=== PATIENT | female | born 1990 | race Caucasian/White ===

== ENCOUNTER 2021-03-20 12:28 | Emergency (ER) | payer OTHER, SELFPAY ==
[2021-03-20 12:40] VITALS: BP 142/85; PULSE 79; RESP 18; TEMP 36.8; O2SAT 100
--- NOTE | 2021-03-20 12:46 | ED.URI ---
HPI - URI/Sore Throat General Chief Complaint: Upper Respiratory Infection Stated Complaint: Headache,Congestion,Sinus Time Seen by Provider: 03/20/21 12:47 Source: patient, RN notes reviewed and old records reviewed Mode of arrival: ambulatory Limitations: no limitations History of Present Illness HPI Narrative: 30-year-old female who presents to [facility] with complaints of sinus congestion and drainage with sinus pressure since Monday and ears feel plugged. Patient states that she has had COVID immunizations and was planning on having Booster done today but due to symptoms she rescheduled, patient has not had flu shot. Patient states that she did have Covid in December of 2020. Patient has been taking Dayquil and Nyquil for her symptoms without resolution. Patient denies any cough, sore throat or any known fevers, chills, or sweats, MD elicited complaint: rhinorrhea and nasal congestion Related Data Home Medications Medication Instructions Recorded Confirmed losartan 50 mg PO DAILY 03/20/21 03/20/21 norethindrone (contraceptive) 0.35 mg PO DAILY 03/20/21 03/20/21 [Miladis-BE] Allergies Allergy/AdvReac Type Severity Reaction Status Date / Time lisinopril AdvReac Mild Headache Verified 03/20/21 12:50 Review of Systems Review of Systems: CONSTITUTIONAL: Denies fever, chills, or sweats. EYES: Denies visual changes, redness, or discharge. ENT: positive rhinorrhea, congestion,no sore throat, or otalgia. CARDIOVASCULAR: Denies chest pain, palpitations, or edema. RESPIRATORY: Denies cough or dyspnea. GASTROINTESTINAL: Denies abdominal pain, nausea, vomiting, or diarrhea. GENITOURINARY: Denies dysuria or hematuria. SKIN: Denies rash or itching. MUSCULOSKELETAL: Denies back pain, joint pain, or myalgia. NEUROLOGIC: Positive for headache, no numbness, or weakness. PSYCHIATRIC: Denies anxiety or depression. All systems reviewed & are unremarkable except as noted in HPI and below PMFSH Past Medical History Medical History (Updated 03/20/21 @ 13:09 by Sarah Lemus NP) Hypertension Surgical History Surgical History (Updated 03/20/21 @ 13:01 by Sarah Lemus NP) Previous section Family History Family History (Updated 03/20/21 @ 13:00 by Sarah Lemus NP) Mother Breast cancer Grandparent Heart disease Father Cancer of kidney Hypertension Social History Social History (Updated 03/20/21 @ 13:01 by Sarah Lemus NP) Smoking status: Never smoker Alcohol intake: current Alcohol use details: social Substance use: never Living arrangements: with family Gender identity (if verbalized by the patient): Female Comments At time of signature, agree with nursing past medical, surgical, social and family history. There is no relevant family history pertinent to the presenting complaint Exam Narrative: GENERAL: Well-appearing, well-nourished, and in no acute distress. HEAD: Normocephalic, atraumatic. EYES: PERRLA and EOMI. ENT: Nares red swollen with thick yellow rhinorrhea no epistaxis.Frontal headache and facial sinus pressure. Mucous membranes moist.TM's normal with dull light reflex, throat mild pink with no lesions exudates or swollen tonsils noted patient has post nasal drainage to back of throat noted. NECK: Supple. no lymphadenopathy CHEST: Clear to auscultation. No respiratory distress.no acute cough or any dyspnea noted SAO2 100% on room air HEART: Regular rate and rhythm. No murmur heard. Normal peripheral pulses. ABDOMEN: Soft, nontender, nondistended, normal active bowel sounds. EXTREMITIES: Normal range of motion. No edema. SKIN: Warm, dry, no rash. NEURO: No focal deficits. Alert and oriented x3. Course Course Level of Care: Express Care Visit Vital Signs Vital signs: Vital Signs Temperature 36.8 C 03/20/21 12:40 Pulse Rate 79 03/20/21 12:40 Respiratory Rate 18 03/20/21 12:40 Blood Pressure 142/85 H 03/20/21 12:40 Pulse Oximetry 100
== END 2021-03-20 13:13 | disposition home or self-care (01) ==
PROVIDERS: Emergency Provider Registered Nurse
DX: J32.9 Chronic sinusitis, unspecified (principal); I10 Essential (primary) hypertension; Z86.16 Personal history of COVID-19
CPT/HCPCS: 99203; G0463

== ENCOUNTER 2021-06-21 10:25 | Emergency (ER) | payer OTHER, SELFPAY ==
[2021-06-21 10:55] VITALS: BP 130/82; PULSE 93; RESP 16; TEMP 36.5; O2SAT 100
--- NOTE | 2021-06-21 11:19 | ED.URI ---
HPI - URI/Sore Throat General Chief Complaint: Upper Respiratory Infection Stated Complaint: Cough,Sore Throat Time Seen by Provider: 06/21/21 11:19 Source: patient Mode of arrival: ambulatory Limitations: no limitations History of Present Illness HPI Narrative: 31-year-old female presents with complaint of cough, nasal congestion, sore throat, headache for 2 to 3 days. Reports coughing up clear sputum. Yesterday took Benadryl and Mucinex with little relief. Afebrile. Denies shortness of breath and chest pain. Reports history of bronchitis. Denies nausea vomiting diarrhea. All systems reviewed and negative except as noted above. Related Data Home Medications Medication Instructions Recorded Confirmed losartan 50 mg PO DAILY 03/20/21 06/21/21 norethindrone (contraceptive) 0.35 mg PO DAILY 03/20/21 06/21/21 [Miladis-BE] Allergies Allergy/AdvReac Type Severity Reaction Status Date / Time lisinopril AdvReac Mild Headache Verified 06/21/21 11:01 Review of Systems Review of Systems: CONSTITUTIONAL: Denies fever, chills, or sweats. EYES: Denies visual changes, redness, or discharge. ENT: Reports rhinorrhea, congestion, sore throat. Denies otalgia. CARDIOVASCULAR: Denies chest pain, palpitations, or edema. RESPIRATORY: Reports cough. Denies dyspnea. GASTROINTESTINAL: Denies abdominal pain, nausea, vomiting, or diarrhea. GENITOURINARY: Denies dysuria or hematuria. SKIN: Denies rash or itching. MUSCULOSKELETAL: Denies back pain, joint pain, or myalgia. NEUROLOGIC: Denies headache, numbness, or weakness. PSYCHIATRIC: Denies anxiety or depression. All other systems reviewed are negative, except as documented in HPI. [facility] Past Medical History Medical History (Updated 06/21/21 @ 11:27 by Sangeeta Clement NP) Hypertension Surgical History Surgical History (Updated 03/20/21 @ 13:01 by Sarah Lemus NP) Previous section Family History Family History (Updated 03/20/21 @ 13:00 by Sarah Lemus NP) Mother Breast cancer Grandparent Heart disease Father Cancer of kidney Hypertension Social History Social History (Updated 03/20/21 @ 13:01 by Sarah Lemus NP) Smoking status: Never smoker Alcohol intake: current Alcohol use details: social Substance use: never Gender identity (if verbalized by the patient): Female Comments At time of signature, agree with nursing past medical, surgical, social and family history. There is no relevant family history pertinent to the presenting complaint. Exam Narrative: GENERAL: This is a well-nourished, well-developed patient, in no apparent distress. HEAD: normocephalic, atraumatic. EYES: PERRL. Sclera clear/white. Vision is grossly intact. EARS: External ears normal, auditory canals clear and without drainage, TMs normal without perforation. Hearing grossly intact. NOSE: External nose normal with clear nasal drainage and mild erythema to nares. THROAT: Mucous membranes moist, posterior pharynx clear. NECK: Neck supple, non-tender without lymphadenopathy, masses or thyromegaly. CARDIOVASCULAR: Regular rate and rhythm without murmurs, gallops, or rubs. RESPIRATORY: Clear to auscultation. Breath sounds equal bilaterally. No wheezes, rales, or rhonchi. SKIN: warm, Dry, intact with no suspicious lesions or rash, good texture and turgor. NEURO: awake, alert, and oriented to person, place and time. There were no obvious focal neurologic abnormalities. EXTREMITIES: Normal range of motion to all extremities Course Course Level of Care: Express Care Visit Vital Signs Vital signs: Vital Signs Temperature 36.5 C 06/21/21 10:55 Pulse Rate 93 06/21/21 10:55 Respiratory Rate 16 06/21/21 10:55 Blood Pressure 130/82 06/21/21 10:55 Pulse Oximetry 100 06/21/21 10:55 Temperature 36.5 C 06/21/21 10:55 Pulse Rate 93 06/21/21 10:55 Respiratory Rate 16 06/21/21 10:55 Blood Pressure 130/82 06/21/21 10:5
== END 2021-06-21 11:35 | disposition home or self-care (01) ==
PROVIDERS: Emergency Provider Nurse Practitioner Family
DX: J06.9 Acute upper respiratory infection, unspecified (principal); I10 Essential (primary) hypertension
CPT/HCPCS: 87081; 87880; 99213; G0463

== ENCOUNTER 2021-12-09 11:57 | Emergency (ER) | payer OTHER, SELFPAY ==
--- NOTE | 2021-12-09 12:01 | ED.URI ---
HPI - URI/Sore Throat General Chief Complaint: Upper Respiratory Infection Stated Complaint: Congestion,Sore Throat,Sinus Time Seen by Provider: 12/09/21 12:37 Source: patient and RN notes reviewed Mode of arrival: ambulatory Limitations: no limitations History of Present Illness HPI Narrative: 31-year-old female presents with a concern for 5 day history of sore throat, sinus pressure, chest congestion and cough. Reports her ears were caught. She reports she has taken a couple [id number] medications without relief. Reports history of bronchitis. She denies fever, body aches, chills, sweats. MD elicited complaint: cough and nasal congestion Related Data Home Medications Medication Instructions Recorded Confirmed losartan 50 mg tablet 50 mg PO DAILY 03/20/21 12/09/21 Allergies Allergy/AdvReac Type Severity Reaction Status Date / Time lisinopril AdvReac Mild Headache Verified 12/09/21 12:21 Review of Systems Review of Systems: CONSTITUTIONAL: Reports malaise. denies chills, sweats, or fever. EYES: Denies visual changes, redness, or discharge. ENT: Reports rhinorrhea, congestion, sinus pain, otalgia and sore throat. CARDIOVASCULAR: Denies chest pain, palpitations, or edema. RESPIRATORY: Reports cough and chest congestion. Denies dyspnea. GASTROINTESTINAL: Denies abdominal pain, nausea, vomiting, diarrhea SKIN: Denies rash or itching. MUSCULOSKELETAL: Denies myalgia. NEUROLOGIC: Denies headache. All systems reviewed & are unremarkable except as noted in HPI and below PMFSH Past Medical History Medical History (Updated 12/09/21 @ 12:44 by Sahra Kim NP) Hypertension Surgical History Surgical History (Updated 03/20/21 @ 13:01 by Sarah Lemus NP) Previous section Family History Family History (Updated 03/20/21 @ 13:00 by Sarah Lemus NP) Mother Breast cancer Grandparent Heart disease Father Cancer of kidney Hypertension Social History Social History (Updated 03/20/21 @ 13:01 by Sarah Lemus NP) Smoking status: Never smoker Alcohol intake: current Alcohol use details: social Substance use: never Gender identity (if verbalized by the patient): Female Comments At time of signature, agree with nursing past medical, surgical, social and family history. There is no relevant family history pertinent to the presenting complaint Exam Narrative: GENERAL: Well-appearing, well-nourished, and in no acute distress. HEAD: Normocephalic EYES: PERRLA, conjunctivae clear ENT: Nares clear, turbinates edematous and erythematous, clear discharge. Mucous membranes moist. TM pearly mark with dull light reflex bilaterally; no tragal tenderness. Oropharynx not erythematous without lesions. Tonsils not enlarged and without exudate, no drooling, no hoarseness, no trismus, uvula midline. NECK: Supple. No lymphadenopathy CHEST: Clear to auscultation, breath sounds equal. No wheezing, rhonchi, rales, or stridor. No respiratory distress, speaks in full sentences. HEART: Regular rate and rhythm. No murmur heard. SKIN: Warm, dry, no rash. NEURO: Alert and oriented x3. PSYCH: Normal mood and affect Course Course Emergency Course: Patient is aware of diagnosis, understands and agrees to treatment plan. Anticipatory guidance given. Patient agrees to follow-up as directed and is aware of reasons to seek care at the emergency department. Portions of this record may have been created with voice recognition software Level of Care: Express Care Visit Vital Signs Vital signs: Reviewed. MDM - URI/Sore Throat MDM Narrative Medical decision making narrative: Differential diagnosis considered: Mascorro virus, strep pharyngitis, allergic rhinitis, upper respiratory tract infection, sinusitis, rhinosinusitis, nasopharyngitis. viral pharyngitis, otitis media, otitis externa, pneumonia, bronchitis, viral cough syndrome, viral syndrome, and influenza. Exam findings show no acute con
[2021-12-09 12:05] VITALS: BP 128/79; PULSE 97; RESP 18; TEMP 36.6; O2SAT 98
== END 2021-12-09 12:49 | disposition home or self-care (01) ==
PROVIDERS: Emergency Provider Nurse Practitioner
DX: J40 Bronchitis, not specified as acute or chronic (principal); I10 Essential (primary) hypertension
CPT/HCPCS: 99213; G0463

== ENCOUNTER 2024-01-29 10:32 | Emergency (ER) | payer OTHER, SELFPAY ==
[2024-01-29 10:45] VITALS: BP 136/98; PULSE 63; RESP 18; TEMP 36.6; O2SAT 98
--- NOTE | 2024-01-29 11:04 | ED.NECK ---
HPI - Neck Pain/Injury General Chief Complaint: Neck Pain/Injury Stated Complaint: head and Neck Pain Time Seen by Provider: 01/29/24 10:35 Source: patient Mode of arrival: ambulatory Limitations: no limitations History of Present Illness HPI Narrative: Patient is a 33-year-old female who presents with headache and right-sided neck pain since Monday. Patient states she was on up stairs felt a pop. Patient has Physical therapy for other side a neck and started doing exercises on injured side. Patient states there was relief of symptoms for short periods of time. Denies any numbness, tingling or weakness to extremities. Denies any changes in vision, dizziness, falling. Related Data Home Medications Medication Instructions Recorded Confirmed losartan 50 mg tablet 50 mg PO DAILY 03/20/21 01/29/24 Allergies Allergy/AdvReac Type Severity Reaction Status Date / Time lisinopril AdvReac Mild Headache Verified 01/29/24 11:00 Review of Systems Review of Systems: All systems reviewed & are unremarkable except as noted in HPI and below Constitutional: Constitutional: Denies body ache(s), Denies chills, Denies fatigue, Denies fever(s), Denies headache(s), Denies malaise and Denies weakness Eyes: Eyes: Denies blurry vision, Denies irritation and Denies loss of vision ENT: Denies otalgia, Denies headache(s), Denies nasal discharge, Denies sinus pain and Denies sore throat Cardiovascular: Cardiovascular: Denies chest pain, Denies irregular heart rhythm and Denies dyspnea Respiratory: Respiratory: Denies dyspnea Gastrointestinal: Gastrointestinal: Denies abdominal pain, Denies melena, Denies hematochezia, Denies diarrhea, Denies nausea and Denies vomiting Musculoskeletal: Musculoskeletal: Denies back pain, Denies myalgias, Denies arthralgias and Reports neck pain Integumentary/Breasts: Skin/Breast: Denies pruritus and Denies rash Neurologic: Denies headache(s), Denies loss of vision and Denies weakness Psychiatric: Psychiatric: Reports no additional psychiatric complaints Endocrine: Endocrine: Denies fatigue [facility] Past Medical History Medical History Hypertension Surgical History Surgical History Previous section Family History Family History Mother Breast cancer Grandparent Heart disease Father Cancer of kidney Hypertension Social History Social History Smoking status: Never smoker Alcohol intake: current Alcohol use details: social Substance use: never Living arrangements: with family Gender identity (if verbalized by the patient): Female Comments At time of signature, agree with nursing past medical, surgical, social and family history. There is no relevant family history pertinent to the presenting complaint. Exam Const: General: cooperative, healthy appearing, comfortable, no acute distress and well nourished Nutritional Appearance: well nourished Orientation/consciousness: patient oriented x3 Limitations: no limitations HENMT: Head: normal to inspection, normocephalic and atraumatic Ears: hearing grossly normal bilaterally and external ears normal Face/Nose/Sinus: Normal external nose present, normal facial exam and face symmetric Face and sinus: normal facial exam and face symmetric Mouth: Yes lip normal Eyes: General: appearance normal, both eyes and all related structures Alignment and Position: alignment normal and position normal Periorbital: periorbital findings normal Eyelids: eyelids normal Pupils: Equal, round and reactive pupils present EOM: EOMs intact bilaterally Neck: Neck: normal visual inspection, full ROM, no lymphadenopathy, no meningeal signs and supple Chest: Chest palpation & inspection: normal inspection of the chest Resp: Effort & Inspection: normal respiratory effort and able to speak in complete sentences Auscultation: clear to auscultation bilaterally Cardio: Rate: regular rate Rhythm: regular rhythm Heart sounds: S1 normal heart sound present and S2 normal heart sound present GI: Inspection: normal to inspection Back/Spine/Pelvis: Cervical Spine: normal cervical lordosis, cervical ROM normal, cervical muscular tenderness and No Cervical spine tenderness Skin: General skin exam: normal color and no rashes or lesions noted Neuro: General: patient oriented x3 and moves all extremities Cranial nerves: Yes Equal, round and reactive pupils present Speech: normal speech Gait exam (Neuro): Normal gait present Motor exam (neuro): 5/5 motor strength present throughout, Normal motor muscle tone present throughout and Motor abnormalities not present Sensory Exam: normal sensation Extrem: General: normal to inspection, full ROM and no edema Psych: Appearance: grossly normal and well kempt Mental Status: mental status grossly normal Speech and movement: Normal speech and movement present Affect: normal affect Attitude: cooperative Thought process: Normal thought process present Course Course Emergency Course: Patient is aware of diagnosis, understands and agrees to treatment plan. Anticipatory guidance given. Patient agrees to follow-up as directed and is aware of reasons to seek care at the emergency department. Portions of this record may have been created with voice recognition software Level of Care: Express Care Visit Vital Signs Vital signs: Vital Signs Temperature 36.6 C 01/29/24 10:45 Pulse Rate 63 01/29/24 10:45 Respiratory Rate 18 01/29/24 10:45 Blood Pressure 136/98 H 01/29/24 10:45 Pulse Oximetry 98 01/29/24 10:45 Oxygen Delivery Room Air 01/29/24 10:45 Temperature 36.6 C 01/29/24 10:45 Pulse Rate 63 01/29/24 10:45 Respiratory Rate 18 01/29/24 10:45 Blood Pressure 136/98 H 01/29/24 10:45 Pulse Oximetry 98 01/29/24 10:45 Oxygen Delivery Room Air 01/29/24 10:45 Reviewed MDM - Neck Pain/Injury MDM Narrative Medical decision making narrative: Exam findings show no acute concerns or changes; patient is non-toxic appearing and is in no distress.? Patient is appropriate for outpatient treatment and follow-up. Discharge instructions reviewed with patient, as well as provided in writing per nursing staff. The instructions also include specific and strict return/GO TO THE ER as well as f/u information. All questions have been answered, and the patient deny any further questions with discharge and discharge plan. Differential Diagnosis Differential diagnosis: Likely disc disorder of cervical region, cervical radiculopathy, vertebral artery dissection, cervical spondylosis, strain of neck muscle and other (Migraine) Medical Records Attestation: I reviewed the patient's medical records. Discharge Plan Discharge Clinical Impression: Strain of neck muscle Qualifiers: Encounter type: initial encounter Qualified Code(s): S16.1XXA - Strain of muscle, fascia and tendon at neck level, initial encounter Patient Disposition: Home, Self-Care Condition: Stable Instructions: Cervical Strain (ED) Additional Instructions: Follow-up with physical therapy. Take muscle relaxers as needed for pain. Take steroids in the morning with food Avoid activities that cause pain until the pain subsides. Ice to the area 20-30 minutes 4-6 times a day Tylenol for lesser pain Follow up with your primary care provider if the condition is not improving within 1 week. If the condition worsens with numbness, tingling, decrease sensation with weakness seek treatment in the emergency room immediately. Prescriptions: New prednisone 20 mg tablet 40 mg PO DAILY 5 Days Qty: 10 0RF baclofen 10 mg tablet 10 mg PO BID Qty: 10 0RF No Action losartan 50 mg tablet 50 mg PO DAILY Follow-up/Referrals: [place], [Primary Care Provider] - 3 Days Time of Disposition: 11:22
== END 2024-01-29 11:23 | disposition home or self-care (01) ==
PROVIDERS: Emergency Provider Nurse Practitioner Family
DX: S39.012A Strain of muscle, fascia and tendon of lower back, initial encounter (principal); X58.XXXA Exposure to other specified factors, initial encounter; I10 Essential (primary) hypertension
CPT/HCPCS: 99213; G0463